=== PATIENT | male | born 1950 | race Caucasian/White ===

== ENCOUNTER 2017-07-18 14:32 | Outpatient (CLI) | payer MEDICARE, MEDICAID ==
[~2017-07-18 14:32] MED LIST: BACTRIM DS 8001 TAB PO; BACTROBAN2% TP; BISOPROLOL 5MG T5 MG PO; BISOPROLOL/HCTZ1 TA1 PO; COUMADIN 1 MG TA1 MG PO; COZAAR50 MG OR; FUROSEMIDE 40MG40 M1 PO; FUROSEMIDE40 MG PO; KEFLEX500 M1 PO; LISINOPRIL HCTZ1 TAB PO; LOSARTAN POTASS25 MG PO; MELOXICAM15 MG PO; METOLAZONE 2.52.5 MG PO; PRAVACHOL 20MG.20 MG PO; TESTOSTERON200 MG/ML IM; TRAMADOL 50MG T50 MG PO; VISTARIL25 MG PO; ZANTAC 150150 MG PO; ZITHROMAX Z PA250 MG PO; ZOCOR40 MG PO
== END 2017-07-18 18:23 ==
LOC: ACC 14:32
DX: Z86.718 Personal history of other venous thrombosis and embolism (principal); Z79.01 Long term (current) use of anticoagulants; Z51.81 Encounter for therapeutic drug level monitoring
CPT/HCPCS: G0463